=== PATIENT | male | born 1950 | race Caucasian/White ===

== ENCOUNTER → 2022-01-29 | Outpatient (CLI) | payer MEDICARE, OTHER | LOC: RAD 12:22 | PROVIDERS: ATTEND Internal Medicine | DX: J40 Bronchitis, not specified as acute or chronic (principal); J69.0 Pneumonitis due to inhalation of food and vomit | CPT/HCPCS: 71046 ==

== ENCOUNTER → 2024-10-30 | Outpatient (REF) | payer MEDICARE, OTHER | LOC: RAD 08:41 | PROVIDERS: ATTEND Internal Medicine | DX: I50.32 Chronic diastolic (congestive) heart failure (principal); J44.9 Chronic obstructive pulmonary disease, unspecified | CPT/HCPCS: 93306 ==